=== PATIENT | female | born 1965 | race Caucasian/White ===

== ENCOUNTER 2024-03-08 13:15 | Day surgery (SDC) | payer BC, SELFPAY ==
[2024-03-08] VITALS (10 sets, daily range): BP systolic 140–175; BP diastolic 70–90
[2024-03-08 05:05] LABS: Urine Albumin 1+ (Neg - Trace); Urine Bilirubin 1+ (Negative); Urine Character Clear (Clear); Urine Color Yellow; Urine Glucose Trace (Negative); Urine Ketone Trace (Negative); Urine Leukocyte Trace (Negative); Urine Nitrite Negative (Negative); Urine Occult Blood 4+ (Negative); Urine Urobilinogen 2+ (Neg - 1+)
[2024-03-08 05:21] LABS: Urine Red Blood Cell >100 /HPF (0-2)
[2024-03-08 05:22] LABS: Urine Bacteria Few (Negative)
--- NOTE | 2024-03-08 06:39 | ED.GENMED ---
History of Present Illness
General
Chief Complaint: Flank Pain
Time Seen by Provider: 03/08/24 06:39
Travel History
Have you had any contact with someone who has COVID-19?: No
Do you have any symptoms of coronavirus? Fever > 100 degrees, chills, cough, shortness of breath, sore throat, loss of taste or smell, muscle aches, or headache?: No
History of Present Illness
History of Present Illness:
HPI: Patient presents with bilateral flank pain associated with abdominal pain. She tried Motrin without much relief. She thinks might have a kidney stone.
EXAM:
GENERAL: Well appearing in only very minimal distress
HEENT: Moist oral mucosa
CARDIOVASCULAR: No murmurs, normal heart rate, regular rhythm, No chest wall tenderness
PULMONARY: No respiratory distress, breath sounds are clear and equal
ABDOMEN: Soft with no peritoneal signs, no tenderness
NEUROLOGIC: Excellent strength all extremities, no coordination deficits
PSYCHIATRIC: Appropriate mental status, normal insight and judgement
EXTREMITIES: Nontender, no edema, moves all extremities equally
SKIN: No rash, no lesions
TIME OF INITIAL ENCOUNTER: 7 AM
NUMBER AND COMPLEXITY OF PROBLEMS ADDRESSED AT THE ENCOUNTER
� Chronic conditions affecting care: Has had kidney stones in the past, COPD, anxiety/depression
� Acute Exacerbation and/or Progression of Chronic Illness: This is an acute problem
� Differential Diagnosis includes: Ureteral stone/colic, UTI, pyelonephritis, musculoskeletal back pain
AMOUNT AND/OR COMPLEXITY OF DATA TO BE REVIEWED AND ANALYZED
� I performed an independent evaluation of and my interpretation is:
EKG:
CT: CT shows 8 mm partially obstructing calculus left renal pelvis
X-rays:
Laboratory Studies: Urinalysis shows 4+ blood, greater than 100 RBC, no clear evidence for infection
Other:
� Review of other/old records: CT of the abdomen pelvis in 2019 showed no acute finding however she did have bilateral renal stones and a 5 cm cystic structure in the right adnexa
� Clinical information was obtained by an independent historian: Spoke to family at bedside
� Prescriptions/Medications Considered but not given:
� Further testing considered but not performed:
RISK OF COMPLICATIONS AND/OR MORBIDITY OR MORTALITY OF PATIENT MANAGEMENT
� Social determinants of health affecting care: Lives at home
� Discussion with other providers: Discussed case with Dr. Pham as well as with Dr. Pineda
� Escalation of care including admission/observation vs risk of discharge considered: The patient was given IV Toradol and now feels improved. However she does have a relatively large stone in the proximal left ureter. As of
now (9:49 AM), the plan is for OR at noon and then likely discharge after stent placement.
Past History
Past History
ED Past Medical History: COPD and Other (Degenerative arthritis knees, kidney stone)
ED Past Surgical History: Gynecological and Orthopedic
Social History
Tobacco: Smoker
Alcohol: None
Drug: None
Personal:
Living: with family
Employment: Employed
Phy Exam
Physical Exam
Physical Exam:
See HPI
Course
Orders/Labs/Results
Orders:
Orders
03/08/24 04:49
Urinalysis Reflex To Culture Urgent
Date Specimen was Collected: 03/08/24
Time Specimen was Collected: 04:41
Urine Microscopic Reflex Cult Urgent
Urine Culture Urgent
RANDAL Source: U
Specimen Description:
Date Specimen was Collected: 03/08/24
Time Specimen was Collected: 04:41
Comment: ADD ON
03/08/24 06:46
CT Abd/pel Without Iv Or Oral Urgent
Comment:
Reason For Exam: abd/back pain hematuria
0.9% Sodium Chloride 1000 ml [Nss] 1,000 ml IV BOLUS
Ketorolac [Toradol] 15 mg IV NOW STA
03/08/24 07:59
Complete Blood Count/With Diff Urgent
Comprehensive Metabolic Panel Urgent
Lipase Urgent
03/08/24 09:07
CefTRIAXone [Rocephin] 2,000 mg IV NOW STA
03/08/24 09:33
Add On- LAB Urgent
Comments:: Urine Culture
Tests Added?: urine culture
Abnormal Lab Results
03/08/24 03/08/24
04:49 07:59
MCH 31.3 H pg
(27.0-31.0)
Absolute Neuts (auto) 6.6 H 10^3/uL
(1.4-6.5)
BUN 20 H mg/dl
(7-17)
Creatinine 0.5 L mg/dL
(0.6-1.0)
Glucose 216 H mg/dl
(70-99)
Urine Ketones Trace A
(Negative)
Ur Occult Blood Reflex 4+ A
(Negative)
Urine Bilirubin 1+ A
(Negative)
Urine Urobilinogen 2+ A
(Neg - 1+)
Leukocyte Esterase Rfl Trace A
(Negative)
Urine RBC >100 A /HPF
(0-2)
Urine Bacteria (Reflex) Few A
(Negative)
Urine Glucose Trace A
(Negative)
Urine Albumin (Reflex) 1+ A
(Neg - Trace)
03/08/24 07:59
03/08/24 07:59
Vital Signs
Initial and Last Documented VS:
Initial Vital Signs
Temp Pulse Resp BP Pulse Ox
97.9 F 82 16 175/90 96
03/08/24 04:36 03/08/24 04:36 03/08/24 04:36 03/08/24 04:36 03/08/24 04:36
Last Documented Vital Signs
Temp Pulse Resp BP Pulse Ox
97.9 F 82 16 175/90 96
03/08/24 04:36 03/08/24 04:36 03/08/24 04:36 03/08/24 04:36 03/08/24 04:36
*Critical Care Note
Total Time (30-74mins, 75-104mins- exclusive of procedures): Not Applicable
ED Attending Note
-
Portions of this chart may have been created with voice recognition software.� Occasional wrong word or��sound alike� substitutions may have occurred due to the inherent limitations of voice recognition software.
Discharge Plan
Departure
Patient Disposition: OR
Date of Disposition: 03/08/24
Time of Disposition: 09:32
Presentation/result/management discussed w/ accepting MD/DO: dr pham / hakeem
Discharge Problem:
Left ureteral stone
Prescriptions:
No Action
ibuprofen 800 MG tablet
800 mg PO Q6HPRN PRN (Reason: pain)
Vicodin 5-325 Mg Tablet
1 tab PO PRN PRN (Reason: pain)
cyclobenzaprine 10 MG tablet
10 mg PO TIDPRN PRN (Reason: PAIN) Qty: 9 0RF
hydrocodone-acetaminophen 1 TABLET tablet
1 tab PO Q4HPRN PRN (Reason: severe pain) Qty: 8 0RF
ibuprofen 600 MG tablet
600 mg PO Q6HPRN PRN (Reason: pain) Qty: 15 0RF
Referrals:
Calixto Elizabeth MD [Family Provider] -
Interventions
Interventions:
*Risk Screen - Suicide Last Done: 03/08/24 04:36
*General Assessment Last Done: 03/08/24 04:36
*Neglect/Abuse Screening Last Done: 03/08/24 04:36
ED- Fall Risk Assessment Last Done: 03/08/24 04:36
Discharge Date and Time
Print Language: MALAWIAN
[2024-03-08] MEDS: NSS 1000 IV (07:54)
[2024-03-08] MEDS: TORADOL 15 MG IV (07:55)
[2024-03-08 08:31] LABS: % Basophils 0.5 % (0-2); % Eosinophils 2.6 % (0-6); % Immature Granulocytes 0.4 % (0-0.5); % Lymphocytes 25.5 % (20.5-51.1); % Monocytes 5.2 % (1.7-9.3); % Neutrophils 65.8 % (42.2-75.2); Absolute Basophils 0.1 10^3/uL (0-0.2); Absolute Eosinophils 0.3 10^3/uL (0-0.7); Absolute Lymphocytes 2.6 10^3/uL (1.2-3.4); Absolute Monocytes 0.5 10^3/uL (0.1-0.6); Absolute Neutrophils 6.6 10^3/uL (1.4-6.5); Hematocrit 39.4 % (37.0-47.0); Mean Corp Hgb Conc. 35.5 g/dL (33.0-37.0); Mean Corpuscular Hgb 31.3 pg (27.0-31.0); Mean Corpuscular Volume 88.1 fL (81.0-99.0); Nucleated Red Blood Cells % 0 %; Platelet Count 189 10^3/uL (130-400); Red Blood Cell Count 4.47 10^6/uL (4.20-5.40); Red Cell Dist. Width 13.1 % (11.5-14.5)
[2024-03-08 08:44] LABS: ALT (SGPT) 21 U/L (0-35); AST (SGOT) 19 U/L (14-36); Albumin 3.8 g/dl (3.5-5.0); Alkaline Phosphatase 91 U/L (38-126); Blood Urea Nitrogen 20 mg/dl (7-17); Calcium 8.9 mg/dl (8.4-10.2); Carbon Dioxide 27 mmol/L (22-30); Chloride 106 mmol/L (98-107); Glucose 216 mg/dl (70-99); Lipase 130 U/L (23-300); Potassium 3.8 mmol/L (3.5-5.1); Sodium 141 mmol/L (135-145); Total Bilirubin 0.5 mg/dl (0.2-1.3); Total Protein 6.7 g/dl (6.3-8.2); eGFR > 60.00
--- NOTE | 2024-03-08 09:12 | W.PN.URO.CBU ---
Today's Communication / Plan
-
send ur cx start rocephin npo observe blood sugar
Assessment / Plan
-
impassable stone with interittent pain 3 months now constant pain but non septic will stent pt aware of side effects and alternative methodd of tx
Diagnosis
-
Date of Service: March 08, 2024
-
Patient Diagnosis:
left upj stone with hematuria and intractable pain lg amount left perinephric edema
Post Op Day:
Subjective
-
colic hematuira no fever chills
Objective
-
Vital Signs
Temp Pulse Resp BP Pulse Ox
97.9 F 82 16 175/90 96
03/08/24 04:36 03/08/24 04:36 03/08/24 04:36 03/08/24 04:36 03/08/24 04:36
Laboratory Results
03/08/24 07:59
03/08/24 07:59
Review of Systems
-
Abdomen/GI: Abdominal Pain
: Flank Pain and Bleeding
Physical Exam
-
General - well developed, well nourished, no acute distress
Chest - clear bilaterally
Abdomen - soft, non-tender, positive bowel sounds, no CVAT, no incisional pain or distention
Genitalia - normal
Rectal - normal
Skin - warm & dry with no rash
Neuro - AOx3, no motor deficits
Extremities - no clubbing, no cyanosis, no edema
Care Review
Data Reviewed
Discussed with: Nursing and Family (sister)
CT Scan: Image Pers Reviewed
[2024-03-08] MEDS: ROCEPHIN 2000 MG IV (10:23)
[2024-03-08] MEDS: Pyridium 200 MG PO (12:32)
== END 2024-03-08 13:53 | disposition home or self-care (01) ==
LOC: SDS 13:15
PROVIDERS: Emergency Medicine; ATTENDING PHYSICIAN Specialist; EMERGENCY PHYSICIAN Emergency Medicine; FAMILY PHYSICIAN Family Medicine
DX: N20.2 Calculus of kidney with calculus of ureter (principal)
CPT/HCPCS: 52332; 74018; 74176; 76000; 80053; 81003; 81015; 83690; 85025; 87086; 96361; 96374; 96375; 99285; C2617

== ENCOUNTER 2024-03-16 06:15 | Day surgery (SDC) | payer BC, SELFPAY ==
[2024-03-16 06:20] VITALS: BP 155/79
[2024-03-16 06:25] VITALS: BMI 38.8
[2024-03-16 06:26] VITALS: BMI 38.8
[2024-03-16 06:33] LABS: Glucose - Point of Care 232 mg/dl (70-99)
[2024-03-16] MEDS: NORMOSOL-R 1000 IV (06:35)
[2024-03-16] MEDS: NOVOLOG vial 1 UNITS SC ×2 (07:07→08:52)
[2024-03-16 08:35] VITALS: BP 146/76
[2024-03-16 08:40] LABS: Glucose - Point of Care 200 mg/dl (70-99)
[2024-03-16 08:45] VITALS: BP 132/72
[2024-03-16 09:00] VITALS: BP 144/61
[2024-03-16] MEDS: DETROL LA 4 MG PO (09:03)
[2024-03-16] MEDS: Pyridium 200 MG PO (09:04)
[2024-03-16 09:06] VITALS: BP 150/74
[2024-03-16 09:30] VITALS: BP 145/85
== END 2024-03-16 10:00 | disposition home or self-care (01) ==
LOC: SDS 06:15
PROVIDERS: ATTENDING PHYSICIAN Specialist
DX: N20.0 Calculus of kidney (principal)
CPT/HCPCS: 52356; 74018; 76000; 82365; 82962; 93005; C1758; C1894; C2617

== ENCOUNTER 2024-09-26 03:51 | Emergency (ER) | payer BC, SELFPAY ==
[2024-09-26 03:55] VITALS: BP 180/102
--- NOTE | 2024-09-26 05:57 | ED.GENMED ---
History of Present Illness
General
Chief Complaint: Skin Surface Trauma
Source: patient
Exam Limitations: none
Time Seen by Provider: 09/26/24 05:53
Nursing documentation reviewed up to this point in time: agreed with
History of Present Illness
History of Present Illness:
This is a [id number] 59-year-old woman who states she attempted to catch a glass vase that was falling and while doing so the vase broke and lacerated her left wrist, ulnar aspect. She states she picked a small sliver of glass out of the
laceration and is concerned that there is more glass in the wound. She admits to scant bleeding. She denies weakness nor numbness. No loss of strength.
She is unsure as to her last tetanus booster, believes this was greater than 10 years ago.
Past History
Past History
ED Past Medical History: COPD, HTN, NIDDM, Psychiatric and Other (Degenerative arthritis knees, kidney stone)
ED Past Surgical History: Gynecological and Orthopedic
Social History
Tobacco: Smoker
Alcohol: None
Drug: None
Personal:
Living: with family
Employment: Employed
Family History
Family History: Other (Noncontributory)
Phy Exam
Physical Exam
Physical Exam:
PHYSICAL EXAMINATION:
General: 59-year-old overweight woman appears her stated age. She is bright alert, pleasant, appears in no acute distress.
Neuro: alert and oriented. no focal neurological deficits
Psychiatric: well kept. interactive and cooperative
Musculoskeletal: [Left wrist, medial aspect has a 2 cm horizontal laceration superficial subcuticular in depth. No active bleeding. There is no tendon involvement. No foreign body visualized nor palpated. There is full
range of motion without difficulty nor pain. Hand grasp are full and equal bilaterally. Distal sensation and strength intact.
Course
Orders/Labs/Results
Orders:
Orders
09/26/24 05:53
Wrist, Left 3 Views CR [CR Wrist - Left Min 3 Views] Urgent
Comment:
Reason For Exam: laceration broken glass, medial wrist.
09/26/24 05:57
Tetanus/Diphth/Acelpertussis [Adacel] 0.5 ml IM .ONCE ONE
Vital Signs
Initial and Last Documented VS:
Initial Vital Signs
Temp Pulse Resp BP Pulse Ox
97.4 F 90 20 180/102 98
09/26/24 03:55 09/26/24 03:55 09/26/24 03:55 09/26/24 03:55 09/26/24 03:55
Last Documented Vital Signs
Temp Pulse Resp BP Pulse Ox
97.4 F 90 20 180/102 99
09/26/24 03:55 09/26/24 03:55 09/26/24 04:00 09/26/24 03:55 09/26/24 04:00
Procedures
Laceration Closure
Left Medial Wrist:
Status of Wound: clean
Size of Wound in cm: 2
Description of Wound Edges: sharp
Preparation: cleaned with saline
Revision/Debridement: routine- no revision and irrigate-direct pressure
Wound exploration: explored to base- no FB and no tendon involvement
Type of Closure: Dermabond-skin glue
MDM/Problems Addressed
Differential Diagnosis Includes:
2 cm left medial wrist laceration appears deep dermal/superficial subcuticular in depth. No foreign body visualized nor palpated but with patient's history will check x-ray, assess for potential foreign body.
Will update Tdap.
Will plan for copious normal saline solution irrigation, Dermabond wound glue and as patient has history of diabetes will place on short course of antibiotic.
Chronic conditions affecting care: DM
*Radiology
Radiology exam reviewed: preliminary read by ED provider (X-ray shows no evidence of foreign body, no fracture.)
*Pulse Oximetry
Patient hypoxic: no
*Critical Care Note
Total Time (30-74mins, 75-104mins- exclusive of procedures): Not Applicable
ED Attending Note
-
Portions of this chart may have been created with voice recognition software.� Occasional wrong word or��sound alike� substitutions may have occurred due to the inherent limitations of voice recognition software.
Discharge Plan
Departure
Patient Disposition: Home (Routine Discharge)
Date of Disposition: 09/26/24
Time of Disposition: 06:38
Patient with high blood pressure during this ER visit?: No
Condition: Good
Discharge Problem:
Laceration left medial wrist
Instructions: Laceration Repair With Glue (DC)
Prescriptions:
New
cephalexin 500 mg capsule
1,000 mg PO BID 5 Days Qty: 20 0RF
No Action
ibuprofen 800 MG tablet
800 mg PO Q6HPRN PRN (Reason: mild pain)
metformin 500 mg Tablet Extended Release 24 Hr
1,500 mg PO DAILY@1200
sertraline 50 mg Tablet
50 mg PO HS
lisinopril 2.5 mg Tablet
2.5 mg PO HS
tramadol 50 mg Tablet
50 mg PO Q4H PRN (Reason: PAIN)
albuterol sulfate [ProAir HFA] 90 mcg/actuation Hfa Aerosol Inhaler
2 puff INHALATION 6XD PRN (Reason: COPD, COLD)
phenazopyridine [Azo] 95 mg Tablet
95 mg PO TID PRN (Reason: bladder spasms)
Referrals:
Calixto Elizabeth MD [Family Provider] - Call in 1-3 days for appt
Interventions
Interventions:
*Risk Screen - Suicide Last Done: 09/26/24 03:55
*Neglect/Abuse Screening Last Done: 09/26/24 03:55
ED- Fall Risk Assessment Last Done: 09/26/24 04:07
ED-Skin Assessment Last Done: 09/26/24 04:07
Discharge Date and Time
Print Language: BAHRAINI
[2024-09-26] MEDS: ADACEL 0.5 ML IM (06:16)
[2024-09-26 06:25] VITALS: BP 146/75
[2024-09-26] MEDS: KEFLEX 1000 MG PO (06:40)
== END 2024-09-26 06:46 | disposition home or self-care (01) ==
LOC: EMR 03:51
PROVIDERS: EMERGENCY PHYSICIAN Emergency Medicine; FAMILY PHYSICIAN Family Medicine
DX: S61.512A Laceration without foreign body of left wrist, initial encounter (principal); W26.8XXA Contact with other sharp object(s), not elsewhere classified, initial encounter; Z23 Encounter for immunization; E11.9 Type 2 diabetes mellitus without complications; I10 Essential (primary) hypertension; J44.9 Chronic obstructive pulmonary disease, unspecified; M17.0 Bilateral primary osteoarthritis of knee; R01.1 Cardiac murmur, unspecified; F41.9 Anxiety disorder, unspecified; F32.A Depression, unspecified; F17.200 Nicotine dependence, unspecified, uncomplicated; Z87.442 Personal history of urinary calculi; Z91.040 Latex allergy status
CPT/HCPCS: 99283; 90471; 12001; 73110; 90715

== ENCOUNTER → 2025-03-04 14:39 | Outpatient (REF) | payer BC, SELFPAY | LOC: HWRAD 14:39 | PROVIDERS: ATTENDING PHYSICIAN Family Medicine | DX: M79.671 Pain in right foot (principal); M79.672 Pain in left foot; M54.2 Cervicalgia | CPT/HCPCS: 72050; 73630 ==

== ENCOUNTER → 2025-06-04 16:23 | Outpatient (REF) | payer BC, SELFPAY | LOC: RAD 16:23 | PROVIDERS: ATTENDING PHYSICIAN Specialist; FAMILY PHYSICIAN Family Medicine | DX: N20.0 Calculus of kidney (principal) | CPT/HCPCS: 74176 ==